=== PATIENT | female | born 1965 | race Caucasian/White ===

== ENCOUNTER → 2018-11-25 | Day surgery (SDC) | payer OTHER ==
--- NOTE | 2018-11-23 13:56 | Pre Op History & Physical ---
DATE OF SURGERY: November 25, 2018. CHIEF COMPLAINT: Recurrent otitis media and eustachian tube dysfunction. HISTORY OF PRESENT ILLNESS: A 52-year-old female. who has history of otalgia, worse on the left side with temporal pain. The patient denies any change in hearing. She has no tinnitus. The otalgia usually improve with antibiotics. The patient has been treated with multiple antibiotics and systemic steroids with no improvement. The patient also has postnasal drip and discharge from her nose. She has frontal and maxillary pain. She has normal sense of smell, but does have postnasal drip. A CT scan of paranasal sinuses done showed the patient has chronic sinusitis with maxillary sinus involvement with retention cyst. Deviated nasal septum was noted. The CT scan did not show any effusion in the ear during the CT scan. Audiogram that was performed showed the patient has mid range to high-frequency sensorineural hearing loss symmetrical with speech discrimination of 100%. The patient's tympanogram most recently did not show any obvious effusion. REVIEW OF SYSTEMS: Showed no recent cardiovascular, respiratory, or GI problem. PAST MEDICAL HISTORY: The patient has type 2 diabetes. PAST SURGICAL HISTORY: The patient has no previous surgery. ALLERGIES: THE PATIENT HAS NO KNOWN ALLERGY TO MEDICATION. MEDICATIONS: She is on: 1. Insulin. 2. Metformin. 3. . 4. B12. 5. Iron. 6. Flonase. 7. Hydrocodone as needed. SOCIAL HISTORY: She stopped smoking years ago. She is a nondrinker. FAMILY HISTORY: Noncontributory. PHYSICAL EXAMINATION: VITAL SIGNS: The patient's vital signs were within normal limits. HEENT: Ear exam show normal tympanic membranes bilaterally. Patient not able to Valsalva. The left ear freely. Nasal exam show hypertrophy of the inferior turbinate. Oropharynx and oral cavity show 2+ tonsils bilaterally with Mallampati level 2. NECK: No lymph node or thyroid palpable. CHEST: Showed good air entry bilaterally. CARDIOVASCULAR: Showed S1, S2. No murmur noted. ASSESSMENT AND PLAN: Mrs. Vaughan has chronic sinusitis, nasal obstruction, otalgia, likely secondary to eustachian tube dysfunction, which has been resistant to conservative therapy. Suggested treatment is endoscopic sinus surgery, septoplasty, essentially inferior turbinate and bilateral myringotomy and tubes, and other necessary procedure. Complication of procedure includes, but not limited to bleeding, infection, CSF leak, blindness, double vision, meningitis, septal perforation, septal hematoma, persistent nasal obstruction, persistent nasal crusting, nasal deformity, recurrence of the sinus problem along with tympanic membrane perforation, persistent drainage in the ear, hearing loss, recurrence of the ear infection, and no improvement of the otalgia. The alternative will be continued observation, continue antibiotic therapy, topical nasal steroid therapy, systemic steroid therapy, decongestant, myringotomy and tubes in the office setting. The patient has elected to undergo surgical procedure. MD CRISTEL Titus/BABITA /[id number] cc: Dr. Muro
[~2018-11-25] MED LIST: ASPIR 8181 MG PO; DESFLURANE 240 ML BTL INH ONE; DEXAMETHASONE SOD PHOS INJ 4 MG/ML VIAL ONE; EPINEPHRINE HCL 1:1000 1ML 1 MG/ML AMP ONE; FENTANYL CITRATE/PF 100MCG/2 ML INJ ONE; GLYCOPYRROLATE INJ 1MG/ 5 ML SYR ONE; KETOROLAC TROMETHAMINE 30 MG/ML VIAL ONE; LIDOCAINE 1% W/EPINEPHRINE 20 ML VIAL ONE; MIDAZOLAM HCL 2 MG/2 ML VIAL ONE; NEOSTIGMINE 5 MG/5ML SYR ONE; NEXIUM40 MG PO; OFLOXACIN 0.3% (OTIC SOL) 5 ML BTL ONE; ONDANSETRON HCL INJ 2MG/ML 2ML 2 MG/ML VIAL ONE; PROPOFOL IV EMULSION 10 MG/ML 20 ML VIAL ONE; ROCURONIUM BROMIDE 10 MG/ML 5ML VIAL ONE; SERTRALINE HCL100 MG PO; VICTOZA 2-0.6 MG/0.1 INJ; VITAMIN B-121000 MCG PO; iron PO
[2018-11-25 11:31] LABS: ANION GAP 11.9 mmol/L (8-16); BLOOD UREA NITROGEN 18 mg/dL (7-26); BUN/CREATININE RATIO 20 (6-25); CALCIUM 9.5 mg/dL (8.4-10.2); CARBON DIOXIDE 25 mmol/L (22-29); CHLORIDE 108 mmol/L (98-107); CREATININE, SERUM 0.89 mg/dL (0.57-1.11); EST GLOMERULAR FILTRATION RATE > 60 ML/MIN (60-); GLUCOSE 95 mg/dL (74-118); POTASSIUM 3.9 mmol/L (3.5-5.1); SODIUM 141 mmol/L (136-145)
[2018-11-25 14:25] VITALS: BP 111/63
--- NOTE | 2018-11-25 15:24 | Operative Report ---
DATE OF PROCEDURE: 11/25/2018 SURGEON: Robbie Hebert MD CHIEF COMPLAINT: Chronic sinusitis, nasal obstruction, eustachian tube dysfunction. POSTOPERATIVE DIAGNOSES: Chronic sinusitis, nasal obstruction, eustachian tube dysfunction. OPERATIVE PROCEDURES: Bilateral anterior and posterior ethmoidectomy. Bilateral maxillary sinus antrostomy, bilateral resection of tissue and maxillary antrum. Septoplasty. Bilateral myringotomy and tubes. ANESTHESIA: Anesthesiology group. INDICATIONS: This 52-year-old female has history of nasal obstruction, postnasal drip discharge from her nose. She also has otalgia with eustachian tube problems. Her condition was treated with topical nasal steroid, decongestant, and antibiotics with no improvement. The CT scan of paranasal sinuses done before surgery showed the patient has chronic sinusitis involving the ethmoid and maxillary sinus on both sides deviated nasal septum to the right. On examination, the patient was noted to have deviated nasal septum to the right with a spur to the right about 30%. The patient has normal TM on both sides. An audiogram that was done before surgery showed the patient has minimal sensorineural hearing loss with normal tympanograms. The patient's otalgia worse on the left side, it has been ongoing and improved with antibiotics. I have discussed with the patient in length about her condition and told her that bilateral myringotomy and tubes would improve her eustachian tube, but may not get rid of all her eustachian tube, otalgia. The suggestion treatment is endoscopic sinus surgery, septoplasty, bilateral myringotomy tubes, and other necessary procedure. DESCRIPTION OF PROCEDURE: The patient was taken to the operating room, put under general anesthesia, endotracheally intubated. The nose was injected with 1% Xylocaine with 1:100,000 epinephrine for hemostasis. An epinephrine-soaked pledget was inserted into nose and subsequently removed. The left paranasal sinuses were approached first. The middle turbinate was medialized. Bulla ethmoidalis was entered, anterior and posterior ethmoid sinuses were dissected in a systematic fashion. Inflamed tissue was noted at both anterior and posterior ethmoid sinus area. Care was taken during dissection to ascertain, although it was not entered. Using a curved probe, natural ostium of maxillary sinus was entered. This was enlarged anteriorly and posteriorly using a backbiter and Thru-Cut forceps respectively. Inflamed tissue and maxillary antrum were dissected using the upbiting Chandra-Cut forceps. The right paranasal sinuses were approached. Middle turbinate was medialized. The bulla ethmoidalis was entered. Anterior and posterior ethmoid sinuses were dissected in a systematic fashion. Inflamed tissue was noted in both anterior and posterior ethmoid sinus area. Care was taken during dissection to ascertain, although it was not entered. Using a curved probe, natural ostium of maxillary sinus was entered. This was enlarged anteriorly and posteriorly using a backbiter and Thru-Cut forceps respectively. Inflamed tissue and maxillary antrum were dissected using a micro shaver. The septoplasty was addressed. An incision was made along the septal spur on the right side. The superior and inferior flaps were elevated. Collagenous portion of the spur was removed using a Dushore elevator and bony spur using a 4 mm straight chisel. By freeing the posterior constraint of quadrangular cartilage. The septum was able to straighten out. The flap that was elevated was reapproximated. NasoPore was inserted in the sinus cavities on either side. This was done to prevent synechiae formation and for hemostasis. The NasoPore was inserted into the floor of the right. No stroke to prevent synechiae formation from the mucosal flap that was elevated from the septoplasty. The patient tolerated the above procedure well with estimated blood loss was about 20 mL. Bilateral myringotomy and tubes were performed. The patient was repositioned. She was put in [place] position. The right ear was examined. The ear canal was debrided. Myringotomy was done in anterior superior quadrant. No effusion was noted in the middle ear cleft. Kohler grommet tube was inserted. Similar procedure was carried on the left side. Again, after the ear canal was debrided, myringotomy was done in anterior superior quadrant. No effusion was noted in middle ear cleft. Kohler grommet tube was inserted. The patient tolerated the above procedure well with estimated blood loss was about 20 mL. She was given 20 mg of Decadron intraoperatively. The patient was able to be transferred to recovery room in stable condition. MD CRISTEL Titus/BABITA /[id number]
== END | disposition home or self-care (01) ==
LOC: OR 10:05
PROVIDERS: ATTEND Otolaryngology Otolaryngology/Facial Plastic Surgery
DX: J32.0 Chronic maxillary sinusitis (principal); J32.2 Chronic ethmoidal sinusitis; J34.2 Deviated nasal septum; J34.89 Other specified disorders of nose and nasal sinuses; H69.83 Other specified disorders of Eustachian tube, bilateral; H92.03 Otalgia, bilateral; H90.5 Unspecified sensorineural hearing loss; E66.01 Morbid (severe) obesity due to excess calories; F41.9 Anxiety disorder, unspecified; Z79.82 Long term (current) use of aspirin; Z79.4 Long term (current) use of insulin; Z79.84 Long term (current) use of oral hypoglycemic drugs
CPT/HCPCS: 30520; 31255; 31267; 36415; 69436; 80048; 81025; 82948; 88300; 88305; 93005; J0171; J1100; J1885; J2250; J2405; J2704; J3010; J3490; 88304